=== PATIENT | male | born 1970 | race African-American/Black ===

== ENCOUNTER 2017-01-23 23:21 | Inpatient (IN) | payer MEDICAID ==
[~2017-01-23] VITALS: Ht 177.8 cm; Wt 120.7 kg
[2017-01-24] VITALS (9 sets, daily range): BP systolic 128–142; BP diastolic 59–94
--- NOTE | 2017-01-24 00:13 | Emergency Room Report ---
History of Present Illness General Chief Complaint: Chest Pain Source: Patient Present Illness HPI 46-year-old male with no sig pmhx, p/w chest pain for 3 days. Chest pain started gradually. Localized to substernal area, no radiation to back or other areas, sharp in nature, gradual in onset, lasts approximately 10 minutes. Multiple episodes. Occurred both on exertion / rest. Denies SOB. Denies palpitations, diaphoresis, n/v. This is the first occurrence of chest pain. Denies fever, chills, cough, abd pain, recent viral illness. Denies trauma. Denies cardiac history, smoking, or family history of cardiac disease at a young age. Denies history of PE/DVT, no recent surgeries, prolonged immobilzation, malignancy Allergies: Coded Allergies: No Known Allergies (Unverified , 01/23/17) Patient History Past Medical History: see triage record Past Surgical History: none Pertinent Family History: none Reviewed Nursing Documentation: PMH: Agreed, PSxH: Agreed Nursing Documentation-PMH Past Medical History: No Stated History Review of Systems All Other Systems: negative except mentioned in HPI Physical Exam Vital Signs Date Time Temp Pulse Resp B/P (MAP) Pulse Ox O2 Delivery O2 Flow Rate FiO2 01/23/17 23:42 98.2 88 16 131/88 97 Room Air Sp02 EP Interpretation: reviewed, normal General Appearance: normal inspection, well appearing, no apparent distress, alert, GCS 15, non-toxic Head: normocephalic, atraumatic Eyes: bilateral eye normal inspection, bilateral eye PERRL, bilateral eye EOMI ENT: normal ENT inspection, normal pharynx, normal voice, moist mucus membranes Neck: normal inspection, full range of motion, supple Respiratory: normal inspection, lungs clear, normal breath sounds, no respiratory distress, no retraction, no wheezing, speaking full sentences, chest symmetrical Cardiovascular #1: normal inspection, regular rate, rhythm, no edema, normal capillary refill, other - reproducible chest wall tenderness Cardiovascular #2: 2+ radial (R), 2+ radial (L) Gastrointestinal: normal inspection, non tender, soft, non-distended, no guarding Genitourinary: no CVA tenderness Musculoskeletal: normal inspection, back normal, normal range of motion, non- tender Neurologic: normal inspection, alert, oriented x3, responsive, motor strength/ tone normal, sensory intact, normal gait, speech normal Psychiatric: normal inspection, judgement/insight normal, memory normal Skin: normal inspection, normal color, no rash, warm/dry, well hydrated, normal turgor Procedures Critical Care Time Critical Care Time 40 minutes of CC time 46-year-old male with chest pain not to have and STEMI VS: Normal Sepsis criteria met Airway patent. Not hypoxic. PLAN: IV access, labs, troponin, heparin Anticipate admission to Tele CC time also includes review of labs, review of EMR, discussion with family and paperwork from SNF, d/w hospitalist CC could include dosing of pressors, additional Abx CC time does not include procedures Medical Decision Making Diagnostic Impression: Primary Impression: NSTEMI (non-ST elevated myocardial infarction) ER Course 46-year-old male with no sig pmhx p/w chest pain for 3 days Plan: ACS, musculoskeletal CP/costochondritis vs. pneumothorax PE less likely given history and physical examination, not hypoxic/tachycardic, no risk factors, PERC negative. Not concerned with Aortic dissection as patient appears well at this time, no hypertension, nontoxic-appearing, not in pain at this time Plan: NSAIDs, EKG, CXR Routine labs ER course: Labs: troponin positive D-dimer negative not c/w dissection at this time as patient states pain has gotten better, has never been hypertensive heparin bolus + drip given trop elevated mildly to 0.6 Disposition: Pt requires inpatient admission for NSTEMI to telemetry floor D/W hospitalist Dr Houston that is associated with Dr Garcia who has accepted patient for admission Please note that this Emergency Department Report was dictated using [employer] machine operator technology software, occasionally this can lead to erroneous entry secondary to interpretation by the dictation equipment. EKG Diagnostic Results EP Interpretation: Yes Rate: normal Rhythm: NSR ST Segments: No acute changes ASA given to patient: No Rhythm Strip EP Interpretation: Yes Rate: 80 Rhythm: NSR, no PVCs, no ectopy Chest X-ray CXR: Ordered: Yes 1 view Indication: Chest pain EP interpretation: Yes Interpretation: No consolidation, no effusion, no PTX, no acute cardiopulmonary disease Impression: No acute disease Electronically signed by Karla Freed MD Laboratory Tests Test 01/23/17 23:52 01/24/17 00:32 01/24/17 02:14 White Blood Count 7.1 K/UL (4.8-10.8) Red Blood Count 4.75 M/UL (4.70-6.10) Hemoglobin 15.0 G/DL (14.2-18.0) Hematocrit 44.6 % (42.0-52.0) Mean Corpuscular Volume 94 FL (80-99) Mean Corpuscular Hemoglobin 31.5 PG (27.0-31.0) H Mean Corpuscular Hemoglobin Concent 33.6 G/DL (32.0-36.0) Red Cell Distribution Width 12.1 % (11.6-14.8) Platelet Count 243 K/UL (150-450) Mean Platelet Volume 6.0 FL (6.5-10.1) L Neutrophils (%) (Auto) 58.4 % (45.0-75.0) Lymphocytes (%) (Auto) 27.0 % (20.0-45.0) Monocytes (%) (Auto) 8.7 % (1.0-10.0) Eosinophils (%) (Auto) 4.5 % (0.0-3.0) H Basophils (%) (Auto) 1.4 % (0.0-2.0) Sodium Level 137 MMOL/L (136-145) Potassium Level 3.8 MMOL/L (3.5-5.1) Chloride Level 103 MMOL/L (98-107) Carbon Dioxide Level 26 MMOL/L (21-32) Anion Gap 9 mmol/L (5-15) Blood Urea Nitrogen 19 mg/dL (7-18) H Creatinine 1.5 MG/DL (0.55-1.30) H Estimate Glomerular Filtration Rate 50.8 mL/min (>60) Glucose Level 103 MG/DL (74-106) Calcium Level 9.5 MG/DL (8.5-10.1) Total Bilirubin 0.6 MG/DL (0.2-1.0) Aspartate Amino Transferase (AST) 15 U/L (15-37) Alanine Aminotransferase (ALT) 35 U/L (12-78) Alkaline Phosphatase 114 U/L (46-116) Troponin I 0.475 ng/mL (0.000-0.056) Pending Pro-B-Type Natriuretic Peptide 28 pg/mL (0-125) Total Protein 7.4 G/DL (6.4-8.2) Albumin 3.6 G/DL (3.4-5.0) Globulin 3.8 g/dL Albumin/Globulin Ratio 0.9 (1.0-2.7) L Prothrombin Time 10.0 SEC (9.30-11.50) Prothrombin Time INR 1.0 (0.9-1.1) PTT 28 SEC (23-33) D-Dimer 0.32 mg/L FEU (0.00-0.49) Last Vital Signs Date Time Temp Pulse Resp B/P (MAP) Pulse Ox O2 Delivery O2 Flow Rate FiO2 01/24/17 00:02 84 16 Room Air 01/24/17 00:02 98.2 128/59 98 Disposition: HOME, SELF-CARE Condition: Improved Scripts No Active Prescriptions or Reported Meds Patient Instructions: Nonspecific Chest Pain Karla Freed M.D. Jan 24, 2017 00:13
[2017-01-24 00:19] LABS: ALANINE AMINOTRANSFERASE 35 U/L (12-78); ALBUMIN 3.6 G/DL (3.4-5.0); ALBUMIN/GLOBULIN RATIO 0.9 (1.0-2.7); ALKALINE PHOSPHATASE 114 U/L (46-116); ANION GAP 9 mmol/L (5-15); ASPARTATE AMINO TRANSFERASE 15 U/L (15-37); BILIRUBIN,TOTAL 0.6 MG/DL (0.2-1.0); BLOOD UREA NITROGEN 19 mg/dL (7-18); CALCIUM 9.5 MG/DL (8.5-10.1); CARBON DIOXIDE 26 MMOL/L (21-32); CHLORIDE 103 MMOL/L (98-107); CREATININE 1.5 MG/DL (0.55-1.30); POTASSIUM 3.8 MMOL/L (3.5-5.1); SODIUM 137 MMOL/L (136-145)
[2017-01-24 00:21] LABS: BASOPHILS % (AUTO) 1.4 % (0.0-2.0); EOSINOPHILS % (AUTO) 4.5 % (0.0-3.0); HEMATOCRIT 44.6 % (42.0-52.0); MEAN CORPUSCULAR VOLUME 94 FL (80-99); MONOCYTES % (AUTO) 8.7 % (1.0-10.0); NEUTROPHILS % (AUTO) 58.4 % (45.0-75.0); PLATELET COUNT 243 K/UL (150-450); RED BLOOD COUNT 4.75 M/UL (4.70-6.10); RED CELL DISTRIBUTION WIDTH 12.1 % (11.6-14.8); WHITE BLOOD COUNT 7.1 K/UL (4.8-10.8)
[2017-01-24] MEDS ORDERED: Heparin 5000 units/ml inj IV ONE ×4 (02:00→18:45)
[2017-01-24] MEDS ORDERED: Heparin 25,000u/D5W 500ml 500 ML IV SCH ×3 (02:00→08:30)
[2017-01-24] MEDS ORDERED: Nitroglycerin Subl 0.4mg tab SL PRN (07:30)
[2017-01-24] MEDS: Aspirin Baby 81mg ORAL SCH (09:10)
[2017-01-24 10:05] LABS: BASOPHILS % (AUTO) 1.4 % (0.0-2.0); EOSINOPHILS % (AUTO) 6.6 % (0.0-3.0); HEMATOCRIT 45.7 % (42.0-52.0); HEMOGLOBIN 14.9 G/DL (14.2-18.0); LYMPHOCYTES % (AUTO) 35.2 % (20.0-45.0); MEAN CORPUSCULAR VOLUME 95 FL (80-99); MONOCYTES % (AUTO) 5.1 % (1.0-10.0); NEUTROPHILS % (AUTO) 51.7 % (45.0-75.0); PLATELET COUNT 237 K/UL (150-450); RED BLOOD COUNT 4.84 M/UL (4.70-6.10); RED CELL DISTRIBUTION WIDTH 12.4 % (11.6-14.8); WHITE BLOOD COUNT 5.4 K/UL (4.8-10.8)
[2017-01-24] MEDS: Heparin 25,000u/D5W 500ml 500 ML IV SCH ×2 (11:01→19:05)
--- NOTE | 2017-01-24 11:09 | Diagnostic Imaging Report ---
Indication: Chest pain Technique: CHEST 1 VIEW Comparison: None. Findings: The cardiomediastinal silhouette is normal. The lungs are clear. There is no evidence of pleural fluid. The bones are unremarkable. Impression: Normal chest.
--- NOTE | 2017-01-24 11:35 | History and Physical ---
History of Present Illness General Date patient seen: Jan 24, 2017 Reason for Hospitalization: Chest Pain Present Illness HPI 46 yo male w/o significant PMHx who presented to the ED w/ 3 days of progressive typical anginal chest pain. Pt reports retrosternal discomfort and radiation of pain into his neck staring 3 days ago, worse w/ exertion and received w/ rest. He is a smoker (1 PPD, ~20 pack year). He denies any prior cardiac disease, palpitations, syncope. He reports a fairly sedentary lifestyle w/ high fat diet. Denies any prior anginal symptoms. In the ED pt was found to have some t wave inversions and elevated troponin 0.4 -> 0.6. He received ASA and was started on a heparin gtt per ACS protocol. He has been chest pain free since admission to the floor overnight. Denies any palp, sob. hernadez, orthopnea or diaphoresis. Allergies: Coded Allergies: No Known Allergies (Unverified , 01/23/17) Medication History No Active Prescriptions or Reported Meds Patient History History Provided By: Patient, Family Member, Medical Record Healthcare decision maker Resuscitation status Full Code Advanced Directive on File Social History Social History: (1) Smoker Review of Systems ROS Narrative CONSTITUTIONAL: No weight loss, fever, chills, weakness or fatigue. HEENT: Eyes: No visual loss, blurred vision, double vision or yellow sclerae. Ears, Nose, Throat: No hearing loss, sneezing, congestion, runny nose or sore throat. SKIN: No rash or itching. CARDIOVASCULAR: + chest pain (resolved). No palpitations or edema. RESPIRATORY: No shortness of breath, cough or sputum. GASTROINTESTINAL: No anorexia, nausea, vomiting or diarrhea. No abdominal pain or blood. NEUROLOGICAL: No headache, dizziness, syncope, paralysis, ataxia, numbness or tingling in the extremities. No change in bowel or bladder control. MUSCULOSKELETAL: No muscle, back pain. No joint pain or stiffness. HEMATOLOGIC: No anemia, bleeding or bruising. LYMPHATICS: No enlarged nodes. No history of splenectomy. PSYCHIATRIC: No history of depression or anxiety. ENDOCRINOLOGIC: No reports of sweating, cold or heat intolerance. No polyuria or polydipsia. ALLERGIES: No history of asthma, hives, eczema or rhinitis. Physical Exam Physical Exam Narrative General: Well appearing, in no acute distress, cooperative and alert Head: Normocephalic, without obvious abnormality, atraumatic. Eyes: Conjunctivae/corneas clear. PERRL, EOMs intact. No scleral icterus present Throat: Lips, mucosa, and tongue normal. Teeth and gums normal. Neck: No carotid bruits bilaterally, no jugular venous distention, no hepatojugular reflux, supple, symmetrical, trachea midline Lungs: Clear to auscultation bilaterally. Chest wall: No tenderness or deformity. Heart: Regular rate and rhythm, normal S1 and S2, No murmurs/gallops/rubs Abdomen: Soft, non-tender, non-distended, normoactive bowel sounds. No masses, or hepatosplenomegaly. Extremities: No clubbing, cyanosis, edema Pulses: 2+ and symmetric all extremities. Skin: No rashes, excoriations Neurologic: CNII-XII intact. Normal strength and sensation throughout. Last 24 Hour Vital Signs Date Time Temp Pulse Resp B/P (MAP) Pulse Ox O2 Delivery O2 Flow Rate FiO2 01/24/17 08:50 97.7 83 20 130/85 96 Nasal Cannula 2.0 01/24/17 06:45 97.7 78 14 129/91 96 Room Air 01/24/17 05:25 98.2 82 14 142/84 98 Room Air 01/24/17 05:25 98.2 82 14 142/84 98 Room Air 01/24/17 03:46 98.2 78 13 138/94 97 Room Air 01/24/17 01:33 98.2 85 20 130/87 97 Room Air 01/24/17 00:02 84 16 Room Air 01/24/17 00:02 98.2 84 16 128/59 98 Room Air 01/23/17 23:42 98.2 88 16 131/88 97 Room Air Laboratory Tests Test 01/23/17 23:52 01/24/17 00:32 01/24/17 02:14 01/24/17 02:40 White Blood Count 7.1 K/UL (4.8-10.8) Red Blood Count 4.75 M/UL (4.70-6.10) Hemoglobin 15.0 G/DL (14.2-18.0) Hematocrit 44.6 % (42.0-52.0) Mean Corpuscular Volume 94 FL (80-99) Mean Corpuscular Hemoglobin 31.5 PG (27.0-31.0) H Mean Corpuscular Hemoglobin Concent 33.6 G/DL (32.0-36.0) Red Cell Distribution Width 12.1 % (11.6-14.8) Platelet Count 243 K/UL (150-450) Mean Platelet Volume 6.0 FL (6.5-10.1) L Neutrophils (%) (Auto) 58.4 % (45.0-75.0) Lymphocytes (%) (Auto) 27.0 % (20.0-45.0) Monocytes (%) (Auto) 8.7 % (1.0-10.0) Eosinophils (%) (Auto) 4.5 % (0.0-3.0) H Basophils (%) (Auto) 1.4 % (0.0-2.0) Sodium Level 137 MMOL/L (136-145) Potassium Level 3.8 MMOL/L (3.5-5.1) Chloride Level 103 MMOL/L (98-107) Carbon Dioxide Level 26 MMOL/L (21-32) Anion Gap 9 mmol/L (5-15) Blood Urea Nitrogen 19 mg/dL (7-18) H Creatinine 1.5 MG/DL (0.55-1.30) H Estimat Glomerular Filtration Rate 50.8 mL/min (>60) Glucose Level 103 MG/DL (74-106) Calcium Level 9.5 MG/DL (8.5-10.1) Total Bilirubin 0.6 MG/DL (0.2-1.0) Aspartate Amino Transf (AST/SGOT) 15 U/L (15-37) Alanine Aminotransferase (ALT/SGPT) 35 U/L (12-78) Alkaline Phosphatase 114 U/L (46-116) Troponin I 0.475 ng/mL (0.000-0.056) 0.630 ng/mL (0.000-0.056) Pro-B-Type Natriuretic Peptide 28 pg/mL (0-125) Total Protein 7.4 G/DL (6.4-8.2) Albumin 3.6 G/DL (3.4-5.0) Globulin 3.8 g/dL Albumin/Globulin Ratio 0.9 (1.0-2.7) L Prothrombin Time 10.0 SEC (9.30-11.50) Prothromb Time International Ratio 1.0 (0.9-1.1) Activated Partial Thromboplast Time 28 SEC (23-33) D-Dimer 0.32 mg/L FEU (0.00-0.49) Urine Opiates Screen Negative (NEGATIVE) Urine Barbiturates Screen Negative (NEGATIVE) Phencyclidine (PCP) Screen Negative (NEGATIVE) Urine Amphetamines Screen Negative (NEGATIVE) Urine Benzodiazepines Screen Negative (NEGATIVE) Urine Cocaine Screen Negative (NEGATIVE) Urine Marijuana (THC) Screen Negative (NEGATIVE) Test 01/24/17 09:00 White Blood Count 5.4 K/UL (4.8-10.8) Red Blood Count 4.84 M/UL (4.70-6.10) Hemoglobin 14.9 G/DL (14.2-18.0) Hematocrit 45.7 % (42.0-52.0) Mean Corpuscular Volume 95 FL (80-99) Mean Corpuscular Hemoglobin 30.8 PG (27.0-31.0) Mean Corpuscular Hemoglobin Concent 32.6 G/DL (32.0-36.0) Red Cell Distribution Width 12.4 % (11.6-14.8) Platelet Count 237 K/UL (150-450) Mean Platelet Volume 6.0 FL (6.5-10.1) L Neutrophils (%) (Auto) 51.7 % (45.0-75.0) Lymphocytes (%) (Auto) 35.2 % (20.0-45.0) Monocytes (%) (Auto) 5.1 % (1.0-10.0) Eosinophils (%) (Auto) 6.6 % (0.0-3.0) H Basophils (%) (Auto) 1.4 % (0.0-2.0) Activated Partial Thromboplast Time 40 SEC (23-33) H Troponin I Pending Pro-B-Type Natriuretic Peptide 36 pg/mL (0-125) Height (Feet): 5 Height (Inches): 10.00 Weight (Pounds): 266 Medications Current Medications Medications (Trade) Dose Ordered Sig/[place] Route PRN Reason Start Time Stop Time Status Last Admin Dose Admin Aspirin (ASA) 81 mg DAILY ORAL 01/24/17 09:00 02/23/17 08:59 01/24/17 09:10 Heparin Sodium/ Dextrose 500 ml @ 38.61 mls/ hr adjust per protocol IV 01/24/17 10:45 02/23/17 10:44 01/24/17 11:01 Nitroglycerin (Ntg) 0.4 mg Q5MIN X 3 DOSES PRN SL Prn Chest Pain 01/24/17 07:30 02/23/17 07:29 Assessment/Plan Status: stable Assessment/Plan NSTEMI RODY (baseline Cr unknown) CAD - admit to in pt - 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 Fabrice Houston MD Jan 24, 2017 11:35
[2017-01-24] MEDS ORDERED: Acetaminophen 500mg (ES) tab ORAL PRN (11:45)
[2017-01-24] MEDS: Norco 5mg/325mg tab ORAL PRN (12:06)
[2017-01-24] MEDS ORDERED: Norco 10mg/325mg tab ORAL PRN (14:30)
--- NOTE | 2017-01-24 17:28 | Cardiac Electrophysiology PN ---
Subjective Subjective [id number] Objective Last 24 Hour Vital Signs Date Time Temp Pulse Resp B/P (MAP) Pulse Ox O2 Delivery O2 Flow Rate FiO2 01/24/17 16:16 97.5 82 18 135/80 97 Nasal Cannula 2.0 01/24/17 11:50 98.1 84 18 139/83 98 Nasal Cannula 2.0 01/24/17 08:50 97.7 83 20 130/85 96 Nasal Cannula 2.0 01/24/17 08:00 84 01/24/17 06:45 97.7 78 14 129/91 96 Room Air 01/24/17 05:25 98.2 82 14 142/84 98 Room Air 01/24/17 05:25 98.2 82 14 142/84 98 Room Air 01/24/17 03:46 98.2 78 13 138/94 97 Room Air 01/24/17 01:33 98.2 85 20 130/87 97 Room Air 01/24/17 00:02 84 16 Room Air 01/24/17 00:02 98.2 84 16 128/59 98 Room Air 01/23/17 23:42 98.2 88 16 131/88 97 Room Air Intake and Output 01/24/17 01/25/17 19:00 07:00 Intake Total 514.44 ml Balance 514.44 ml Intake Oral 360 ml IV Total 154.44 ml # Voids 2 Laboratory Tests Test 01/23/17 23:52 01/24/17 00:32 01/24/17 02:14 01/24/17 02:40 White Blood Count 7.1 K/UL (4.8-10.8) Red Blood Count 4.75 M/UL (4.70-6.10) Hemoglobin 15.0 G/DL (14.2-18.0) Hematocrit 44.6 % (42.0-52.0) Mean Corpuscular Volume 94 FL (80-99) Mean Corpuscular Hemoglobin 31.5 PG (27.0-31.0) H Mean Corpuscular Hemoglobin Concent 33.6 G/DL (32.0-36.0) Red Cell Distribution Width 12.1 % (11.6-14.8) Platelet Count 243 K/UL (150-450) Mean Platelet Volume 6.0 FL (6.5-10.1) L Neutrophils (%) (Auto) 58.4 % (45.0-75.0) Lymphocytes (%) (Auto) 27.0 % (20.0-45.0) Monocytes (%) (Auto) 8.7 % (1.0-10.0) Eosinophils (%) (Auto) 4.5 % (0.0-3.0) H Basophils (%) (Auto) 1.4 % (0.0-2.0) Sodium Level 137 MMOL/L (136-145) Potassium Level 3.8 MMOL/L (3.5-5.1) Chloride Level 103 MMOL/L (98-107) Carbon Dioxide Level 26 MMOL/L (21-32) Anion Gap 9 mmol/L (5-15) Blood Urea Nitrogen 19 mg/dL (7-18) H Creatinine 1.5 MG/DL (0.55-1.30) H Estimat Glomerular Filtration Rate 50.8 mL/min (>60) Glucose Level 103 MG/DL (74-106) Calcium Level 9.5 MG/DL (8.5-10.1) Total Bilirubin 0.6 MG/DL (0.2-1.0) Aspartate Amino Transf (AST/SGOT) 15 U/L (15-37) Alanine Aminotransferase (ALT/SGPT) 35 U/L (12-78) Alkaline Phosphatase 114 U/L (46-116) Troponin I 0.475 ng/mL (0.000-0.056) 0.630 ng/mL (0.000-0.056) Pro-B-Type Natriuretic Peptide 28 pg/mL (0-125) Total Protein 7.4 G/DL (6.4-8.2) Albumin 3.6 G/DL (3.4-5.0) Globulin 3.8 g/dL Albumin/Globulin Ratio 0.9 (1.0-2.7) L Prothrombin Time 10.0 SEC (9.30-11.50) Prothromb Time International Ratio 1.0 (0.9-1.1) Activated Partial Thromboplast Time 28 SEC (23-33) D-Dimer 0.32 mg/L FEU (0.00-0.49) Urine Opiates Screen Negative (NEGATIVE) Urine Barbiturates Screen Negative (NEGATIVE) Phencyclidine (PCP) Screen Negative (NEGATIVE) Urine Amphetamines Screen Negative (NEGATIVE) Urine Benzodiazepines Screen Negative (NEGATIVE) Urine Cocaine Screen Negative (NEGATIVE) Urine Marijuana (THC) Screen Negative (NEGATIVE) Test 01/24/17 09:00 White Blood Count 5.4 K/UL (4.8-10.8) Red Blood Count 4.84 M/UL (4.70-6.10) Hemoglobin 14.9 G/DL (14.2-18.0) Hematocrit 45.7 % (42.0-52.0) Mean Corpuscular Volume 95 FL (80-99) Mean Corpuscular Hemoglobin 30.8 PG (27.0-31.0) Mean Corpuscular Hemoglobin Concent 32.6 G/DL (32.0-36.0) Red Cell Distribution Width 12.4 % (11.6-14.8) Platelet Count 237 K/UL (150-450) Mean Platelet Volume 6.0 FL (6.5-10.1) L Neutrophils (%) (Auto) 51.7 % (45.0-75.0) Lymphocytes (%) (Auto) 35.2 % (20.0-45.0) Monocytes (%) (Auto) 5.1 % (1.0-10.0) Eosinophils (%) (Auto) 6.6 % (0.0-3.0) H Basophils (%) (Auto) 1.4 % (0.0-2.0) Activated Partial Thromboplast Time 40 SEC (23-33) H Troponin I 0.823 ng/mL (0.000-0.056) Pro-B-Type Natriuretic Peptide 36 pg/mL (0-125) DENISHA ARMAS Jan 24, 2017 17:28
[2017-01-24] MEDS: Metoprolol 25mg tab ORAL SCH (21:00)
--- NOTE | 2017-01-24 23:00 | Consultation ---
DATE OF CONSULTATION: 01/24/2017 CARDIOLOGY CONSULTATION CONSULTING PHYSICIAN: Herb Moss M.D. REFERRING PHYSICIAN: Angela Garcia M.D. REASON FOR CONSULTATION: Acute coronary syndrome. HISTORY OF PRESENT ILLNESS: The patient is a 46-year-old, gentleman without any significant past medical history and no medication at home, presented to the emergency room with 3 days of increasing chest pain that was substernal. The patient had some radiation of the pain to his neck three days ago that was worse with exertion, relieved with rest. He continues to be one pack-a-day smoker for about 20 years, but denies hypertension, diabetes, or prior cardiac history. In the emergency room, the patient's EKG showed nonspecific T-wave abnormality in sinus rhythm. Troponins were mildly elevated at 0.4 and 0.6. The patient received aspirin and heparin drip, was admitted to telemetry floor. At the time of my evaluation, the patient is completely asymptomatic. Denies any chest pain, palpitation, or shortness of breath. PAST MEDICAL HISTORY: Negative. MEDICATIONS AT HOME: None. FAMILY HISTORY: Noncontributory. SOCIAL HISTORY: He lives with family. He continues to smoke. REVIEW OF SYSTEMS: Review of systems was performed and was negative other than what was mentioned in the history of present illness. PHYSICAL EXAMINATION: VITAL SIGNS: Blood pressure is 135/80, pulse 82, respirations 18, and temperature is 97.5. HEAD AND NECK: No JVD. LUNGS: Clear. CARDIOVASCULAR: Regular S1 and S2 with no gallop. ABDOMEN: Obese. EXTREMITIES: No pitting edema. LABORATORY AND DIAGNOSTIC DATA: EKG shows sinus rhythm with nonspecific T-wave abnormalities. Labs show white count of 5.4, hemoglobin of 14.9, hematocrit of 45.2, and platelet count of 237. Sodium 137, potassium 3.8, BUN of 19, and creatinine 1.5. Troponin is 0.47, 0.6 and 0.8. ASSESSMENT AND PLAN: 1. Chest pain and troponin elevation. This could be secondary to acute coronary syndrome. Certainly, the patient does not have ST elevation on the EKG. The troponin elevation may also be due to renal failure. Creatinine was 1.5. He also has a preliminary echocardiogram that showed ejection fraction of 55%. We will keep the patient on aspirin and beta-radha and statins. We will repeat troponin in the morning as well as repeat EKG. I will keep him on heparin drip until the troponins come down. Depending on further troponins and symptoms, we may need a nuclear stress test or cardiac catheterization. 2. Smoking. Smoking cessation was strongly encouraged. 3. Obesity. Thank you very much, Dr. Garcia, for allowing me to participate in the care of this patient. Please do not hesitate to contact me if you have any questions regarding my evaluation. Herb Moss M.D. DR: SARIAH JOB#: [id number] CC:
[2017-01-25] MEDS: Norco 5mg/325mg tab ORAL PRN (00:13)
[2017-01-25 00:50] VITALS: BP 139/92
[2017-01-25] MEDS: Heparin 25,000u/D5W 500ml 500 ML IV SCH ×2 (01:29→06:14)
[2017-01-25] MEDS ORDERED: Heparin 5000 units/ml inj IV ONE (01:30)
[2017-01-25 04:00] VITALS: BP 132/84
[2017-01-25 08:08] LABS: BASOPHILS % (AUTO) 1.2 % (0.0-2.0); EOSINOPHILS % (AUTO) 6.3 % (0.0-3.0); HEMOGLOBIN 15.5 G/DL (14.2-18.0); LYMPHOCYTES % (AUTO) 36.2 % (20.0-45.0); MEAN CORPUSCULAR VOLUME 94 FL (80-99); MONOCYTES % (AUTO) 6.4 % (1.0-10.0); PLATELET COUNT 272 K/UL (150-450); WHITE BLOOD COUNT 6.5 K/UL (4.8-10.8)
[2017-01-25 08:16] VITALS: BP 125/87
[2017-01-25 08:39] LABS: ANION GAP 11 mmol/L (5-15); BLOOD UREA NITROGEN 14 mg/dL (7-18); CALCIUM 9.1 MG/DL (8.5-10.1); CARBON DIOXIDE 29 MMOL/L (21-32); CHLORIDE 103 MMOL/L (98-107); CREATININE 1.4 MG/DL (0.55-1.30); POTASSIUM 3.9 MMOL/L (3.5-5.1); SODIUM 142 MMOL/L (136-145)
[2017-01-25] MEDS ORDERED: Heparin 25,000u/D5W 500ml 500 ML IV SCH ×2 (09:00→09:15)
[2017-01-25] MEDS: Metoprolol 25mg tab ORAL SCH (09:00)
[2017-01-25] MEDS: Aspirin Baby 81mg ORAL SCH (09:15)
[2017-01-25 09:21] LABS: CHOLESTEROL 214 MG/DL (< 200); HDL CHOLESTEROL 36 MG/DL (40-60); TRIGLYCERIDES 481 MG/DL (0-200)
[2017-01-25 11:34] VITALS: BP 119/71
[2017-01-25] MEDS ORDERED: Lexiscan 0.4mg/5ml syringe IV ONE (14:00)
--- NOTE | 2017-01-25 14:27 | Diagnostic Imaging Report ---
Indication:Elevated Bun and Creatinine. Technique: Grayscale and duplex Doppler imaging of the kidneys performed. Comparison: None Findings: The size, contour, and echogenicity of both kidneys are within normal limits. There is no hydronephrosis. The IVC and urinary bladder are unremarkable. Both kidneys are between 13 and 14 cm. Impression: Negative study
--- NOTE | 2017-01-25 14:31 | Cardiac Electrophysiology PN ---
Assessment/Plan Assessment/Plan 1. Chest pain and troponin elevation. 6 troponins are low level and flat between 0.6 and 0.9. The troponin elevation may be due to renal failure. Creatinine was 1.5. Echocardiogram showed ejection fraction of 55%. On aspirin and beta-radha and statins. DC heparin drip. Nuclear stress test performed. Results pending. 2. Smoking. Smoking cessation was strongly encouraged. 3. Obesity. MARIO RN Subjective Subjective Feeling better. Had nuclear stress test today.No chest pain. Objective Last 24 Hour Vital Signs Date Time Temp Pulse Resp B/P (MAP) Pulse Ox O2 Delivery O2 Flow Rate FiO2 01/25/17 12:00 60 01/25/17 11:34 96.6 67 20 119/71 96 Room Air 01/25/17 08:16 96.4 77 18 125/87 Room Air 01/25/17 08:00 74 01/25/17 04:15 65 01/25/17 04:00 97.9 63 17 132/84 95 Room Air 01/25/17 00:50 97.8 74 18 139/92 92 Room Air 01/25/17 00:00 91 01/24/17 21:00 94 141/93 01/24/17 20:38 97.8 80 17 141/93 95 Room Air 01/24/17 20:34 74 01/24/17 16:16 97.5 82 18 135/80 97 Nasal Cannula 2.0 01/24/17 16:00 85 Intake and Output 01/25/17 01/26/17 19:00 07:00 Intake Total 120.655 ml Balance 120.655 ml IV Total 120.655 ml Laboratory Tests Test 01/24/17 17:55 01/24/17 18:30 01/25/17 00:15 01/25/17 07:30 Activated Partial Thromboplast Time 59 SEC (23-33) H 64 SEC (23-33) H 108 SEC (23-33) H Troponin I 0.807 ng/mL (0.000-0.056) 0.914 ng/mL (0.000-0.056) 0.941 ng/mL (0.000-0.056) Urine Random Sodium 164 MEQ/L (20-110) H Urine Creatinine 171.8 MG/DL (30.0-125.0) H White Blood Count 6.5 K/UL (4.8-10.8) Red Blood Count 4.70 M/UL (4.70-6.10) Hemoglobin 15.5 G/DL (14.2-18.0) Hematocrit 44.0 % (42.0-52.0) Mean Corpuscular Volume 94 FL (80-99) Mean Corpuscular Hemoglobin 33.0 PG (27.0-31.0) H Mean Corpuscular Hemoglobin Concent 35.3 G/DL (32.0-36.0) Red Cell Distribution Width 12.0 % (11.6-14.8) Platelet Count 272 K/UL (150-450) Mean Platelet Volume 5.9 FL (6.5-10.1) L Neutrophils (%) (Auto) 50.0 % (45.0-75.0) Lymphocytes (%) (Auto) 36.2 % (20.0-45.0) Monocytes (%) (Auto) 6.4 % (1.0-10.0) Eosinophils (%) (Auto) 6.3 % (0.0-3.0) H Basophils (%) (Auto) 1.2 % (0.0-2.0) Sodium Level 142 MMOL/L (136-145) Potassium Level 3.9 MMOL/L (3.5-5.1) Chloride Level 103 MMOL/L (98-107) Carbon Dioxide Level 29 MMOL/L (21-32) Anion Gap 11 mmol/L (5-15) Blood Urea Nitrogen 14 mg/dL (7-18) Creatinine 1.4 MG/DL (0.55-1.30) H Estimat Glomerular Filtration Rate > 60 mL/min (>60) Glucose Level 132 MG/DL (74-106) H Hemoglobin A1c 4.9 % (4.3-6.0) Calcium Level 9.1 MG/DL (8.5-10.1) Magnesium Level 2.0 MG/DL (1.8-2.4) Pro-B-Type Natriuretic Peptide 81 pg/mL (0-125) Triglycerides Level 481 MG/DL (0-200) H Cholesterol Level 214 MG/DL (< 200) H LDL Cholesterol 120 mg/dL (<100) H HDL Cholesterol 36 MG/DL (40-60) L Cholesterol/HDL Ratio 5.9 (3.3-4.4) H Thyroid Stimulating Hormone (TSH) 3.417 uiU/mL (0.360-3.740) Free Thyroxine 0.89 NG/DL (0.10-1.46) Test 01/25/17 13:00 Troponin I 0.842 ng/mL (0.000-0.056) Objective HEAD AND NECK: No JVD. LUNGS: Clear. CARDIOVASCULAR: Regular S1 and S2 with no gallop. ABDOMEN: Obese. EXTREMITIES: No pitting edema. DENISHA ARMAS Jan 25, 2017 14:31
[2017-01-25 15:41] VITALS: BP 143/80
--- NOTE | 2017-01-25 17:12 | Diagnostic Imaging Report ---
Indication: chest pain Technique: The study was conducted under the supervision of a horticultural services supervisor. lexiscan (regadenoson) infusion over 10 seconds followed by intravenous administration of 30.5 mCi of technetium 99m Myoview was performed. Three plane SPECT imaging of the heart was then performed. A resting study was performed as part of the one-day protocol with 10 mCi of technetium 99m myoview injected intravenously at that time. Three plane SPECT imaging of the heart was obtained. Comparison: None Clinical data: 1. Clinical response: Non ischemic 2. Electrocardiographic response: Non ischemic Findings: The myocardial perfusion scan demonstrates no definite fixed or reversible perfusion defects. LVEF estimated at 59%. Impression: No definite fixed or reversible perfusion defects. LVEF 59%
--- NOTE | 2017-01-25 17:12 | Diagnostic Imaging Report ---
Indication: chest pain Technique: The study was conducted under the supervision of a it engineer. lexiscan (regadenoson) infusion over 10 seconds followed by intravenous administration of 30.5 mCi of technetium 99m Myoview was performed. Three plane SPECT imaging of the heart was then performed. A resting study was performed as part of the one-day protocol with 10 mCi of technetium 99m myoview injected intravenously at that time. Three plane SPECT imaging of the heart was obtained. Comparison: None Clinical data: 1. Clinical response: Non ischemic 2. Electrocardiographic response: Non ischemic Findings: The myocardial perfusion scan demonstrates no definite fixed or reversible perfusion defects. LVEF estimated at 59%. Impression: No definite fixed or reversible perfusion defects. LVEF 59%
--- NOTE | 2017-01-25 17:12 | Diagnostic Imaging Report ---
Indication: chest pain Technique: The study was conducted under the supervision of a on site soil evaluator. lexiscan (regadenoson) infusion over 10 seconds followed by intravenous administration of 30.5 mCi of technetium 99m Myoview was performed. Three plane SPECT imaging of the heart was then performed. A resting study was performed as part of the one-day protocol with 10 mCi of technetium 99m myoview injected intravenously at that time. Three plane SPECT imaging of the heart was obtained. Comparison: None Clinical data: 1. Clinical response: Non ischemic 2. Electrocardiographic response: Non ischemic Findings: The myocardial perfusion scan demonstrates no definite fixed or reversible perfusion defects. LVEF estimated at 59%. Impression: No definite fixed or reversible perfusion defects. LVEF 59%
[2017-01-25] MEDS ORDERED: ASPIR 8181 MG ORAL (18:50)
[2017-01-25 19:17] LABS: APPEARANCE,URINE CLEAR; BILIRUBIN, URINE NEGATIVE (NEGATIVE); COLOR,URINE PALE YELLOW; GLUCOSE, URINE (UA) NEGATIVE (NEGATIVE); KETONES,URINE NEGATIVE (NEGATIVE); LEUKOCYTE ESTERASE ,URINE NEGATIVE (NEGATIVE); NITRITE,URINE NEGATIVE (NEGATIVE); PH,URINE 6 (4.5-8.0); PROTEIN,URINE NEGATIVE (NEGATIVE); UROBILINOGEN,URINE NORMAL MG/DL (0.0-1.0)
--- NOTE | 2017-01-25 19:45 | Cardiology Report ---
APPROVED REPORT EXAM: Two-dimensional and M-mode echocardiogram with Doppler and color Doppler. INDICATION NSTEMI M-Mode DIMENSIONS IVSd1.5 (0.7-1.1cm)Left Atrium (MM)3.5 (1.6-4.0cm) LVDd4.2 (3.5-5.6cm)Aortic Root3.3 (2.0-3.7cm) PWd1.3 (0.7-1.1cm)Aortic Cusp Exc.2.0 (1.5-2.0cm) LVDs3.0 (2.5-4.0cm) PWs1.9 cm Normal left ventricular chamber size, systolic function and wall motion. Left ventricular ejection fraction estimated to be 55 %. Mild left ventricular hypertrophy. Anterior Echo-free space, may be due to pericardial fat or effusion. All other cardiac chamber sizes are within normal limits. Normal appearing aortic, mitral, puImonic and tricuspid valves. IVC dilated at 2.2 cm with physiologic collapse, estimated RAP is 10 mmHg. A color flow and spectral Doppler study was performed and revealed: No aortic regurgitation. Mild mitral regurgitation. Mitral inflow indicates normal left ventricular diastolic function. Mild tricuspid regurgitation. Tricuspid systolic velocities suggests peak right ventricular systolic pressure of 28 mmHg. No pulmonic regurgitation present.
--- NOTE | 2017-01-25 20:18 | Cardiology Report ---
APPROVED REPORT EKG Measurement Heart [id number] [place] [id number] Normal sinus rhythm Rightward axis Nonspecific T wave abnormality Abnormal ECG
--- NOTE | 2017-01-25 20:18 | Cardiology Report ---
APPROVED REPORT EKG Measurement Heart [id number] [place] 138P57 [id number] Normal sinus rhythm Normal ECG
--- NOTE | 2017-01-25 20:18 | Cardiology Report ---
APPROVED REPORT EKG Measurement Heart [id number] [place] 148P68 [id number] Normal sinus rhythm Rightward axis Nonspecific T wave abnormality Abnormal ECG
--- NOTE | 2017-01-25 20:18 | Cardiology Report ---
APPROVED REPORT EKG Measurement Heart [id number] [place] 138P57 [id number] Normal sinus rhythm Normal ECG
--- NOTE | 2017-01-25 20:18 | Cardiology Report ---
APPROVED REPORT EKG Measurement Heart [id number] [place] 148P68 [id number] Normal sinus rhythm Rightward axis Nonspecific T wave abnormality Abnormal ECG
--- NOTE | 2017-01-25 20:18 | Cardiology Report ---
APPROVED REPORT EKG Measurement Heart [id number] MD 138P57 [id number] Normal sinus rhythm Normal ECG
[2017-01-25 20:26] VITALS: BP 128/71
--- NOTE | 2017-01-26 06:54 | Discharge Summary ---
Discharge Summary Hospital Course Date of Admission Jan 24, 2017 at 01:15 Date of Discharge Jan 25, 2017 at 20:[address] elevation miocardial infarction Reason for Hospitalization: NSTEMI HPI 46 yo male w/o significant PMHx who presented to the ED w/ 3 days of progressive typical anginal chest pain. Pt reports retrosternal discomfort and radiation of pain into his neck staring 3 days ago, worse w/ exertion and received w/ rest. He is a smoker (1 PPD, ~20 pack year). He denies any prior cardiac disease, palpitations, syncope. He reports a fairly sedentary lifestyle w/ high fat diet. Denies any prior anginal symptoms. In the ED pt was found to have some t wave inversions and elevated troponin 0.4 -> 0.6. He received ASA and was started on a heparin gtt per [facility] protocol. He has been chest pain free since admission to the floor overnight. Denies any palp, sob. hernadez, orthopnea or diaphoresis Consultations Cardiology Hospital Course Pt was admitted to [facility]. Given rising troponin, pt was started on heparin gtt. Cardiology was consulted. TTE showed normal EF. Pt underwent nuclear stress test which showed no signs of fixed or reversible ischemic defects. Elevated troponin may be 2/2 renal insufficiency. Pt was counseled on diet, exercise and smoking cessation. Discharge Medications Continued Medications: Aspirin* (Aspir 81*) 81 Mg Tablet.dr 81 MG ORAL DAILY, TAB Discharge Discharge Disposition Patient was discharged to Home (01) Discharge Diagnoses: (1) NSTEMI (non-ST elevated myocardial infarction) (2) Tobacco abuse (3) RODY vs CKD Discharge Instructions Discharge Instructions Follow up with: f/u with PCP in 1 week Call MD/Return to Hospital if: fevers, n/v, chest pain, SOB Diet: cardiac 2 GM Na, low fat Activity: resume normal activities Cih Cagle M.D. Jan 26, 2017 06:54
== END 2017-01-25 20:45 | disposition home or self-care (01) | DRG 190 ==
LOC: EMR 23:55 → 2E 01-24 01:15 → ENRESERV 01-24 02:46 → EDBEDREQ 01-24 02:50
DX: I21.4 Non-ST elevation (NSTEMI) myocardial infarction (principal); N17.9 Acute kidney failure, unspecified; F17.200 Nicotine dependence, unspecified, uncomplicated; I25.119 Atherosclerotic heart disease of native coronary artery with unspecified angina pectoris; E66.9 Obesity, unspecified
CPT/HCPCS: 36415; 71010; 76775; 78452; 80048; 80053; 80061; 80307; 81003; 82570; 83036; 83735; 83880; 84300; 84439; 84443; 84484; 85025; 85379; 85610; 85730; 93005; 93017; 93306; 99291; J2785

== ENCOUNTER 2017-03-02 11:01 | Emergency (ER) | payer MEDICAID ==
[~2017-03-02] VITALS: Ht 175.3 cm; Wt 117.9 kg
[~2017-03-02 11:01] MED LIST: ASPIR 8181 MG ORAL
[2017-03-02] MEDS ORDERED: IBUPROFEN600 MG ORAL (12:28)
[2017-03-02] MEDS ORDERED: NORCO 5-325 TA1 EACH ORAL (12:28)
[2017-03-02 12:39] VITALS: BP 126/88
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
--- NOTE | 2017-03-02 17:11 | Diagnostic Imaging Report ---
Indication: Reason For Exam: PAIN Technique: 3 views left hand Comparison: none Findings: There is a transverse fracture of the axial shaft of the first metacarpal. This is mildly angulated. No other acute fractures. No dislocations. Joint spaces are preserved. Impression: Positive for first metacarpal shaft fracture This agrees with the interpretation by the ER physician documented in the electronic medical record
== END 2017-03-02 12:40 | disposition home or self-care (01) ==
LOC: EMR 12:07
DX: S62.502A Fracture of unspecified phalanx of left thumb, initial encounter for closed fracture (principal); Y04.2XXA Assault by strike against or bumped into by another person, initial encounter; Y92.9 Unspecified place or not applicable
CPT/HCPCS: 99283